=== PATIENT | male | born 1985 | race Caucasian/White ===

== ENCOUNTER 2022-05-20 23:49 | Emergency (ER) | payer SELFPAY ==
[~2022-05-20] VITALS: Ht 175.3 cm; Wt 90.0 kg
[2022-05-21] MEDS ORDERED: SODIUM CHLORIDE 0.9% 1,000 ML IV ONE
[2022-05-21] MEDS ORDERED: FOLIC ACID 1 MG, THIAMINE HCL 100 MG, MVI, ADULT NO.1 10 ML in DEXTROSE 5% WATER 1,000 ML IV ONE ×4
[2022-05-21 00:29] LABS: BASOPHILS % 0.5 % (0.0-2.0); EOSINOPHILS % 0.5 % (0.0-5.0); HEMATOCRIT. 45.1 % (42.0-52.0); HEMOGLOBIN. 15.7 g/dL (14.0-18.0); LYMPHOCYTES % 44.3 % (20.0-50.0); MEAN CORPUSCULAR HEMOGLOBIN 33.5 pg (28.0-32.0); MEAN CORPUSCULAR VOLUME 96.1 fL (80.0-94.0); MONOCYTES % 7.8 % (2.0-8.0); NEUTROPHILS % 46.9 % (40.0-76.0); PLATELET 242 x1000/uL (130-400); RED BLOOD CELL COUNT 4.69 mill/uL (4.7-6.1); RED CELL DISTRIBUTION WIDTH 13.1 % (11.6-14.6)
[2022-05-21 01:12] LABS: *AMPHETAMINES SCREEN URINE NEGATIVE (NEGATIVE); *BARBITURATES SCREEN URINE NEGATIVE (NEGATIVE); *BENZODIAZEPINES SCREEN URINE NEGATIVE (NEGATIVE); *COCAINE SCREEN URINE NEGATIVE (NEGATIVE); CANNABINOID URINE SCREEN NEGATIVE (NEGATIVE); METHADONE URINE SCREEN NEGATIVE (NEGATIVE); OPIATES URINE SCREEN NEGATIVE (NEGATIVE); PHENCYCLIDINE URINE SCREEN NEGATIVE (NEGATIVE)
[2022-05-21 01:23] LABS: CHLORIDE 107 mEq/L (98-107)
[2022-05-21 01:47] LABS: ETHANOL BLOOD 300 mg/dL
[2022-05-21 03:15] VITALS: BP 11/70
== END 2022-05-21 06:20 | disposition left against medical advice (07) ==
LOC: ER 23:49
DX: F10.129 Alcohol abuse with intoxication, unspecified (principal); S01.511A Laceration without foreign body of lip, initial encounter; Y90.8 Blood alcohol level of 240 mg/100 ml or more; W01.10XA Fall on same level from slipping, tripping and stumbling with subsequent striking against unspecified object, initial encounter; Y93.89 Activity, other specified; Y92.39 Other specified sports and athletic area as the place of occurrence of the external cause
CPT/HCPCS: 36415; 80053; 80305; 80320; 82962; 85025; 96361; 96365; 99284; J3411; J3490; J7030; J7070; Z7610; G0480